=== PATIENT | male | born 1975 | race African-American/Black ===

== ENCOUNTER 2020-09-03 12:50 | Emergency (ER) | payer MEDICAID, SELFPAY ==
[~2020-09-03] VITALS: Ht 188 cm; Wt 93.4 kg
[2020-09-03 13:08] VITALS: BP 167/110
--- NOTE | 2020-09-03 14:40 | NUR ---
COVID SWAB COLLECTED AND SENT TO THE LAB.
--- NOTE | 2020-09-03 14:42 | NUR ---
Patient discharged with v/s stable. Written and verbal after care instructions given and explained. Patient alert, oriented and verbalized understanding of instructions. Ambulatory with steady gait. All questions addressed prior to discharge. ID band removed. Patient advised to follow up with PMD. Rx of Promethazine given. Patient educated on indication of medication including possible reaction and side effects. Opportunity to ask questions provided and answered.
== END 2020-09-03 14:42 | disposition home or self-care (01) ==
LOC: MED 12:50
DX: R05 Cough (principal); Z20.828 Contact with and (suspected) exposure to other viral communicable diseases; M79.10 Myalgia, unspecified site; R51.9 Headache, unspecified
CPT/HCPCS: 99283; U0003

== ENCOUNTER 2024-04-06 20:42 | Emergency (ER) | payer MEDICAID ==
[~2024-04-06] VITALS: Ht 185.4 cm; Wt 81.6 kg
[2024-04-06 20:45] VITALS: BP 144/88; PULSE 89; RESP 16; TEMP 98; O2SAT 96
[2024-04-07] MEDS ORDERED: IBUPROFEN 600 MG TAB PO ONE (04:50)
[2024-04-07] MEDS: ACETAMINOPHEN 325 MG TAB PO ONE (05:00)
[2024-04-07] MEDS ORDERED: CYCL-711 PO (05:06)
[2024-04-07 05:11] VITALS: BP 140/79; PULSE 80; RESP 18; TEMP 98; O2SAT 96
[2024-04-07] MEDS: CYCLOBENZAPRINE 10 MG TAB PO ONE (05:11)
== END 2024-04-07 05:11 | disposition home or self-care (01) ==
LOC: MED 20:42
DX: M54.50 Low back pain, unspecified (principal); R03.0 Elevated blood-pressure reading, without diagnosis of hypertension
CPT/HCPCS: 99283